=== PATIENT | male | born 1960 | race Hispanic/Latino ===

== ENCOUNTER 2017-06-13 15:02 | Observation (INO) | payer MEDICARE ==
[~2017-06-13] VITALS: Ht 182.9 cm; Wt 165.1 kg
[~2017-06-13 15:02] MED LIST: AMLO5TAB2 PO; CARV12.511 PO
[2017-06-13 15:53] LABS: EOSINOPHILS % (AUTO) 2.2 % (0.0-8.0); HEMATOCRIT 39.4 % (42-54); LYMPHOCYTES % (AUTO) 18.6 % (21.0-51.0); MEAN CORPUSCULAR HEMOGLOBIN 31.6 pg (27.0-33.0); MEAN CORPUSCULAR HGB CONC 34.4 g/dL (32.0-36.0); MEAN CORPUSCULAR VOLUME 91.9 fL (79-99); MONOCYTES % (AUTO) 7.4 % (3.0-13.0); NEUTROPHILS % (AUTO) 70.8 % (40.0-77.0); PLATELET COUNT (AUTO) 80 K/uL (130-400); RED BLOOD CELL COUNT(AUTO) 4.29 MIL/uL (4.50-6.20); RED CELL DISTRIBUTION WIDTH 14.9 % (11.0-15.5); WHITE BLOOD COUNT (AUTO) 3.6 K/uL (4.8-10.8)
[2017-06-13 15:57] LABS: CREATININE 0.8 mg/dL (0.5-1.5); POTASSIUM 4.4 mmol/L (3.5-5.1)
[2017-06-13 16:01] LABS: INR 1.21 (0.85-1.15); PROTHROMBIN TIME 12.7 SEC (9.6-11.6)
[2017-06-13 16:02] LABS: ALBUMIN 2.8 g/dL (3.5-5.0); BILIRUBIN,TOTAL 1.5 mg/dL (0.2-1.0); TOTAL PROTEIN, SERUM 7.7 g/dL (6.0-8.3)
[2017-06-13] MEDS ORDERED: ENOXAPARIN SODIUM 60 MG/0.6 ML SQ ONE (16:41)
[2017-06-13] MEDS ORDERED: ENOXAPARIN SODIUM 100 MG/1 ML SQ ONE (16:41)
[2017-06-13 17:10] VITALS: BP 164/95
[2017-06-13] MEDS ORDERED: POTASSIUM CHLORIDE 20 MEQ ERTAB PO PRN (18:00)
[2017-06-13] MEDS ORDERED: ACETAMINOPHEN-CODEINE 300/30MG TAB PO PRN ×2 (18:00)
[2017-06-13] MEDS ORDERED: POTASSIUM CHLORIDE 20MEQ/100ML 100 ML IV PRN (18:00)
[2017-06-13] MEDS ORDERED: LIDOCAINE HCL-MPF 1% 2ML VIAL IJ PRN (18:00)
[2017-06-13] MEDS ORDERED: ACETAMINOPHEN 325 MG TAB PO PRN ×2 (18:00)
[2017-06-13] MEDS ORDERED: MORPHINE SULFATE 4 MG/1ML SYG IVP PRN (18:00)
[2017-06-13] MEDS ORDERED: POTASSIUM CHLORIDE 10% ELIXIR 20 MEQ/15 ML UDCUP PO PRN (18:00)
[2017-06-13] MEDS ORDERED: MORPHINE SULFATE 2 MG/ML 1ML SYG IVP PRN (18:00)
[2017-06-13] MEDS ORDERED: ONDANSETRON HCL 4 MG/2 ML VIAL IVP PRN (18:00)
[2017-06-13 19:44] VITALS: BP 161/90
[2017-06-13] MEDS: RIVAROXABAN 15 MG TABLET PO SCH (20:19)
[2017-06-14] VITALS (7 sets, daily range): BP systolic 146–153; BP diastolic 75–87
[2017-06-14] MEDS ORDERED: CEFTRIAXONE 1GM/D5W 50ML 50 ML IV SCH (00:30)
[2017-06-14] MEDS ORDERED: GLUCAGON 1MG KIT 1 MG ML IM PRN (00:30)
[2017-06-14] MEDS ORDERED: DEXTROSE 50%-WATER 50 ML DISP.SYRIN IV PRN (00:30)
[2017-06-14] MEDS: CEFTRIAXONE SODIUM 1 GM IVP SCH (01:27)
[2017-06-14 04:35] LABS: MEAN CORPUSCULAR HEMOGLOBIN 31.8 pg (27.0-33.0); MEAN CORPUSCULAR HGB CONC 34.8 g/dL (32.0-36.0); MEAN CORPUSCULAR VOLUME 91.2 fL (79-99); PLATELET COUNT (AUTO) 65 K/uL (130-400); RED BLOOD CELL COUNT(AUTO) 3.95 MIL/uL (4.50-6.20); RED CELL DISTRIBUTION WIDTH 14.5 % (11.0-15.5); WHITE BLOOD COUNT (AUTO) 3.1 K/uL (4.8-10.8)
[2017-06-14 04:52] LABS: CREATININE 0.6 mg/dL (0.5-1.5); POTASSIUM 3.6 mmol/L (3.5-5.1)
[2017-06-14] MEDS: INSULIN HUMULIN R 100 UNIT/ML 3ML SQ SCH ×4 (06:50→21:29)
[2017-06-14] MEDS ORDERED: MAG HYDROX/AL HYDROX/SIMETH ES 30 ML SUSP UDCUP PO PRN (08:30)
[2017-06-14] MEDS ORDERED: GUAIFENESIN-DM 200/20 MG 10 ML PO PRN (08:30)
[2017-06-14] MEDS ORDERED: HYDRALAZINE HCL 20 MG/ML VIAL IV PRN (08:30)
[2017-06-14] MEDS ORDERED: NITROGLYCERIN 0.4 MG SL TAB SL PRN (08:30)
[2017-06-14] MEDS ORDERED: LACTULOSE 20 GM/30 ML UDCUP PO PRN (08:30)
[2017-06-14] MEDS: RIVAROXABAN 15 MG TABLET PO SCH ×2 (09:41→21:16)
[2017-06-14] MEDS: FAMOTIDINE/PF 20 MG/2 ML VIAL IV SCH ×2 (09:41→21:16)
[2017-06-14] MEDS ORDERED: TRAZ150T79 PO (10:00)
[2017-06-14] MEDS ORDERED: ARIP15TA2 PO (10:00)
[2017-06-14] MEDS ORDERED: ASPI-1026 PO (10:00)
[2017-06-14] MEDS ORDERED: HYDR-4154 PO (10:00)
[2017-06-14] MEDS ORDERED: HYDR12.54 PO (10:00)
[2017-06-14] MEDS ORDERED: VILA40TA PO (10:00)
[2017-06-14] MEDS ORDERED: METF500T6 PO (10:00)
[2017-06-14] MEDS ORDERED: LOVA10TA2 PO (10:00)
[2017-06-14] MEDS ORDERED: ALPR-411 PO (10:00)
[2017-06-15] MEDS: CEFTRIAXONE SODIUM 1 GM IVP SCH (01:27)
[2017-06-15 04:21] VITALS: BP 146/93
[2017-06-15 05:24] LABS: HEMATOCRIT 37.8 % (42-54); MEAN CORPUSCULAR HEMOGLOBIN 31.6 pg (27.0-33.0); MEAN CORPUSCULAR HGB CONC 34.4 g/dL (32.0-36.0); NUCLEATED RED BLOOD CELLS 0.1 % (0.0-0.19); PLATELET COUNT (AUTO) 81 K/uL (130-400); RED BLOOD CELL COUNT(AUTO) 4.11 MIL/uL (4.50-6.20); RED CELL DISTRIBUTION WIDTH 14.8 % (11.0-15.5); WHITE BLOOD COUNT (AUTO) 3.5 K/uL (4.8-10.8)
[2017-06-15 05:39] LABS: BAND NEUTROPHILS % (MANUAL) 4 % (0-2); LYMPHOCYTES % (MANUAL) 40 % (22-44); MAN.DIFF COMMENT-IMPRESSION MANUAL DIFFERENTIAL; MONOCYTES % (MANUAL) 12 % (2-9); PLATELET MORPHOLOGY COMMENT DECREASED; SEGMENTED NEUTROPHILS % 44 % (40-70)
[2017-06-15 05:42] LABS: CREATININE 0.6 mg/dL (0.5-1.5); POTASSIUM 3.5 mmol/L (3.5-5.1)
[2017-06-15] MEDS: INSULIN HUMULIN R 100 UNIT/ML 3ML SQ SCH ×2 (06:59→12:31)
[2017-06-15 08:00] VITALS: BP 138/70
[2017-06-15] MEDS: FAMOTIDINE/PF 20 MG/2 ML VIAL IV SCH (08:50)
[2017-06-15] MEDS: RIVAROXABAN 15 MG TABLET PO SCH (08:50)
[2017-06-15] MEDS ORDERED: VILAZODONE HYDROCHLORIDE 40 MG PO SCH (09:00)
[2017-06-15] MEDS ORDERED: HYDRALAZINE HCL 25 MG TABLET PO SCH (09:00)
[2017-06-15] MEDS ORDERED: ALPRAZOLAM 1 MG TAB PO SCH (09:00)
[2017-06-15] MEDS ORDERED: ARIPIPRAZOLE 5 MG TABLET PO SCH (09:00)
[2017-06-15] MEDS ORDERED: CARVEDILOL 12.5 MG TABLET PO SCH (09:00)
[2017-06-15 11:00] VITALS: BP 146/79
[2017-06-15 12:28] VITALS: BP 146/79
[2017-06-15] MEDS ORDERED: TRAZODONE HCL 100 MG TABLET PO SCH (21:00)
== END 2017-06-15 15:00 | disposition home or self-care (01) ==
LOC: EDH 15:02 → EDHIP 15:50 → 3BH 16:50
PROVIDERS: ADMIT Internal Medicine; ATTEND Internal Medicine
DX: I82.401 Acute embolism and thrombosis of unspecified deep veins of right lower extremity (principal); E11.65 Type 2 diabetes mellitus with hyperglycemia; F32.9 Major depressive disorder, single episode, unspecified; E78.5 Hyperlipidemia, unspecified; I10 Essential (primary) hypertension; K74.60 Unspecified cirrhosis of liver; L03.115 Cellulitis of right lower limb; E66.9 Obesity, unspecified
CPT/HCPCS: 36415 ×3; 80048 ×2; 80053; 82948 ×7; 85025 ×2; 85027; 85610; 85730; 96372 ×3; 96374; 96375; 96376 ×3; 99291; A4218 ×2; G0378 ×47; J0696 ×3; J1650 ×2; J1815 ×5; J3490 ×3

== ENCOUNTER 2017-09-02 17:28 | Inpatient (IN) | payer OTHER, MEDICARE ==
[~2017-09-02] VITALS: Ht 180.3 cm; Wt 154.5 kg
[~2017-09-02 17:28] MED LIST changes: +ALPR-411 PO; -AMLO5TAB2 PO; +ARIP15TA2 PO; +ASPI-1026 PO; +HYDR-4154 PO; +HYDR12.54 PO; +LOVA10TA2 PO; +METF500T6 PO; +TRAZ150T79 PO; +VILA40TA PO
[2017-09-02] MEDS ORDERED: ONDANSETRON HCL MDV 20ML 2 MG/ML VIAL ONE (18:06)
[2017-09-02] MEDS ORDERED: SODIUM CHLORIDE 0.9% 1000ML 1,000 ML IV ONE (18:06)
[2017-09-02 18:10] LABS: EOSINOPHILS % (AUTO) 2.4 % (0.0-8.0); HEMATOCRIT 38.2 % (42-54); LYMPHOCYTES % (AUTO) 20.4 % (21.0-51.0); MEAN CORPUSCULAR HEMOGLOBIN 30.9 pg (27.0-33.0); MEAN CORPUSCULAR HGB CONC 34.8 g/dL (32.0-36.0); MEAN CORPUSCULAR VOLUME 88.9 fL (79-99); MONOCYTES % (AUTO) 6.1 % (3.0-13.0); NEUTROPHILS % (AUTO) 70.1 % (40.0-77.0); PLATELET COUNT (AUTO) 68 K/uL (130-400); RED CELL DISTRIBUTION WIDTH 16.5 % (11.0-15.5); WHITE BLOOD COUNT (AUTO) 3.4 K/uL (4.8-10.8)
[2017-09-02 18:17] LABS: AMPHET/METH SCREEN,URINE NEGATIVE (NEGATIVE); BARBITURATE SCREEN, URINE NEGATIVE (NEGATIVE); BENZODIAZEPINES SCREEN,URINE POSITIVE (NEGATIVE); CANNABINOID SCREEN,URINE POSITIVE (NEGATIVE); COCAINE SCREEN,URINE NEGATIVE (NEGATIVE); OPIATE SCREEN,URINE NEGATIVE (NEGATIVE); PHENCYCLIDINE SCREEN,URINE NEGATIVE (NEGATIVE)
[2017-09-02 18:20] LABS: INR 1.24 (0.85-1.15)
[2017-09-02 18:23] LABS: CREATININE 0.6 mg/dL (0.5-1.5); POTASSIUM 3.8 mmol/L (3.5-5.1)
[2017-09-02 18:35] LABS: ALBUMIN 2.9 g/dL (3.5-5.0); BILIRUBIN,TOTAL 1.9 mg/dL (0.2-1.0); CREATINE KINASE MB 1.7 ng/mL (0.5-3.6); TOTAL PROTEIN, SERUM 7.8 g/dL (6.0-8.3)
[2017-09-02] MEDS ORDERED: ALBUMIN (HUMAN) 25% 100 ML IV ONE (18:53)
[2017-09-02] MEDS ORDERED: CEFTRIAXONE SODIUM 2 GM VIAL ONE (18:53)
[2017-09-02] MEDS ORDERED: ACETAMINOPHEN 325 MG TAB PO PRN ×2 (20:00)
[2017-09-02] MEDS ORDERED: ONDANSETRON HCL MDV 20ML 2 MG/ML VIAL IVP PRN ×2 (20:00→23:45)
[2017-09-02] MEDS ORDERED: LACTULOSE 20 GM/30 ML UDCUP PO PRN (20:00)
[2017-09-02] MEDS ORDERED: SODIUM CHLORIDE 0.9% 100 ML IV ONE (23:47)
[2017-09-03] VITALS (7 sets, daily range): BP systolic 133–152; BP diastolic 65–87
[2017-09-03] MEDS ORDERED: HYDROCODONE PO (03:03)
[2017-09-03] MEDS ORDERED: FOLI1TAB15 PO (03:03)
[2017-09-03] MEDS ORDERED: APIX5TAB PO (03:03)
[2017-09-03 06:21] LABS: HEMATOCRIT 37.8 % (42-54); MEAN CORPUSCULAR HGB CONC 34.8 g/dL (32.0-36.0); MEAN CORPUSCULAR VOLUME 89.1 fL (79-99); PLATELET COUNT (AUTO) 68 K/uL (130-400); RED BLOOD CELL COUNT(AUTO) 4.24 MIL/uL (4.50-6.20); RED CELL DISTRIBUTION WIDTH 16.9 % (11.0-15.5); WHITE BLOOD COUNT (AUTO) 3.6 K/uL (4.8-10.8)
[2017-09-03 06:28] LABS: CREATININE 0.6 mg/dL (0.5-1.5); POTASSIUM 3.8 mmol/L (3.5-5.1)
[2017-09-03] MEDS ORDERED: PANTOPRAZOLE SODIUM 40 MG TABLET.DR PO SCH (09:00)
[2017-09-03] MEDS: PANTOPRAZOLE SODIUM 80 MG in SODIUM CHLORIDE 0.9% 100 ML IV SCH (09:04)
[2017-09-03] MEDS ORDERED: DEXTROSE 50%-WATER 50 ML DISP.SYRIN IV PRN (09:30)
[2017-09-03] MEDS ORDERED: GLUCAGON 1MG KIT 1 MG ML IM PRN (09:30)
[2017-09-03] MEDS: INSULIN HUMULIN R 100 UNIT/ML 3ML SQ SCH ×3 (11:38→20:57)
[2017-09-03] MEDS: ALPRAZOLAM 1 MG TAB PO SCH ×2 (14:00→21:10)
[2017-09-03] MEDS ORDERED: OCTREOTIDE ACETATE 100 MCG/ML AMP IV SCH (16:45)
[2017-09-03] MEDS: OCTREOTIDE ACETATE 1,000 MCG in SODIUM CHLORIDE 0.9% 95 ML IV SCH (17:44)
[2017-09-03] MEDS: TRAZODONE HCL 100 MG TABLET PO SCH (21:09)
[2017-09-03] MEDS: HYDRALAZINE HCL 25 MG TABLET PO SCH (21:09)
[2017-09-03] MEDS: CARVEDILOL 12.5 MG TABLET PO SCH (21:10)
[2017-09-04] VITALS (22 sets, daily range): BP systolic 121–147; BP diastolic 54–102
[2017-09-04 05:49] LABS: HEMATOCRIT 37.3 % (42-54); MEAN CORPUSCULAR HEMOGLOBIN 30.9 pg (27.0-33.0); MEAN CORPUSCULAR HGB CONC 34.4 g/dL (32.0-36.0); MEAN CORPUSCULAR VOLUME 89.7 fL (79-99); PLATELET COUNT (AUTO) 65 K/uL (130-400); RED BLOOD CELL COUNT(AUTO) 4.15 MIL/uL (4.50-6.20); RED CELL DISTRIBUTION WIDTH 16.8 % (11.0-15.5); WHITE BLOOD COUNT (AUTO) 3.4 K/uL (4.8-10.8)
[2017-09-04] MEDS: INSULIN HUMULIN R 100 UNIT/ML 3ML SQ SCH ×4 (06:05→21:01)
[2017-09-04] MEDS: PANTOPRAZOLE SODIUM 80 MG in SODIUM CHLORIDE 0.9% 100 ML IV SCH (08:29)
[2017-09-04] MEDS: VIIBRYD 40 MG PO SCH (09:00)
[2017-09-04] MEDS: HYDRALAZINE HCL 25 MG TABLET PO SCH ×2 (09:00→21:07)
[2017-09-04] MEDS: HYDROCHLOROTHIAZIDE 25 MG TABLET PO SCH (09:00)
[2017-09-04] MEDS: ALPRAZOLAM 1 MG TAB PO SCH ×3 (09:00→21:06)
[2017-09-04] MEDS: FOLIC ACID 1 MG TABLET PO SCH (09:00)
[2017-09-04] MEDS: CARVEDILOL 12.5 MG TABLET PO SCH ×2 (09:00→21:06)
[2017-09-04] MEDS: ARIPIPRAZOLE 5 MG TABLET PO SCH (09:00)
[2017-09-04] MEDS: **HM** LOVASTATIN 10MG PO SCH (09:00)
[2017-09-04] MEDS ORDERED: MIDAZOLAM HCL 1 MG/ML 2ML VIAL ONE ×2 (12:02→12:03)
[2017-09-04] MEDS ORDERED: MEPERIDINE-PF 50 MG/ML SYG ONE (12:03)
[2017-09-04] MEDS: TRAZODONE HCL 100 MG TABLET PO SCH (21:06)
[2017-09-05 04:02] VITALS: BP 113/55
[2017-09-05 05:47] LABS: HEMATOCRIT 37.3 % (42-54); MEAN CORPUSCULAR HEMOGLOBIN 31.6 pg (27.0-33.0); MEAN CORPUSCULAR VOLUME 90.3 fL (79-99); PLATELET COUNT (AUTO) 76 K/uL (130-400); RED BLOOD CELL COUNT(AUTO) 4.13 MIL/uL (4.50-6.20); RED CELL DISTRIBUTION WIDTH 16.6 % (11.0-15.5); WHITE BLOOD COUNT (AUTO) 3.9 K/uL (4.8-10.8)
[2017-09-05] MEDS: INSULIN HUMULIN R 100 UNIT/ML 3ML SQ SCH ×4 (06:07→22:19)
[2017-09-05 08:00] VITALS: BP 119/66
[2017-09-05] MEDS: FOLIC ACID 1 MG TABLET PO SCH (08:50)
[2017-09-05] MEDS: HYDROCHLOROTHIAZIDE 25 MG TABLET PO SCH (08:50)
[2017-09-05] MEDS: CARVEDILOL 12.5 MG TABLET PO SCH ×2 (08:51→20:45)
[2017-09-05] MEDS: ARIPIPRAZOLE 5 MG TABLET PO SCH (08:51)
[2017-09-05] MEDS: HYDRALAZINE HCL 25 MG TABLET PO SCH ×2 (08:51→20:44)
[2017-09-05] MEDS: ALPRAZOLAM 1 MG TAB PO SCH ×3 (08:51→20:44)
[2017-09-05] MEDS: **HM** LOVASTATIN 10MG PO SCH (08:57)
[2017-09-05] MEDS: VIIBRYD 40 MG PO SCH (08:57)
[2017-09-05] MEDS: OCTREOTIDE ACETATE 1,000 MCG in SODIUM CHLORIDE 0.9% 95 ML IV SCH (11:14)
[2017-09-05 12:00] VITALS: BP 123/76
[2017-09-05 16:00] VITALS: BP 148/78
[2017-09-05 19:00] VITALS: BP 141/81
[2017-09-05] MEDS: TRAZODONE HCL 100 MG TABLET PO SCH (20:44)
[2017-09-05 23:00] VITALS: BP 139/74
[2017-09-06 03:00] VITALS: BP 132/72
[2017-09-06 05:09] LABS: HEMATOCRIT 37.6 % (42-54); MEAN CORPUSCULAR HEMOGLOBIN 31.1 pg (27.0-33.0); MEAN CORPUSCULAR HGB CONC 34.6 g/dL (32.0-36.0); MEAN CORPUSCULAR VOLUME 89.9 fL (79-99); PLATELET COUNT (AUTO) 76 K/uL (130-400); RED BLOOD CELL COUNT(AUTO) 4.18 MIL/uL (4.50-6.20); RED CELL DISTRIBUTION WIDTH 16.5 % (11.0-15.5); WHITE BLOOD COUNT (AUTO) 3.9 K/uL (4.8-10.8)
[2017-09-06 05:11] LABS: CREATININE 0.6 mg/dL (0.5-1.5); POTASSIUM 3.5 mmol/L (3.5-5.1)
[2017-09-06] MEDS: INSULIN HUMULIN R 100 UNIT/ML 3ML SQ SCH ×2 (06:14→13:01)
[2017-09-06 07:00] VITALS: BP 127/72
[2017-09-06] MEDS: ARIPIPRAZOLE 5 MG TABLET PO SCH (08:57)
[2017-09-06] MEDS: HYDROCHLOROTHIAZIDE 25 MG TABLET PO SCH (08:57)
[2017-09-06] MEDS: FOLIC ACID 1 MG TABLET PO SCH (08:58)
[2017-09-06] MEDS: ALPRAZOLAM 1 MG TAB PO SCH ×2 (08:58→14:46)
[2017-09-06] MEDS: HYDRALAZINE HCL 25 MG TABLET PO SCH (08:58)
[2017-09-06] MEDS: CARVEDILOL 12.5 MG TABLET PO SCH (08:58)
[2017-09-06] MEDS ORDERED: PANTOPRAZOLE SODIUM 40 MG TABLET.DR PO SCH (09:00)
[2017-09-06] MEDS: **HM** LOVASTATIN 10MG PO SCH (09:00)
[2017-09-06] MEDS: VIIBRYD 40 MG PO SCH (09:00)
[2017-09-06] MEDS ORDERED: PANT40TA25 PO (09:19)
[2017-09-06 11:00] VITALS: BP 107/58
== END 2017-09-06 15:47 | disposition home or self-care (01) | DRG 432 ==
LOC: EDH 17:28 → EDHIP 18:25 → OBSVTOIN 18:25 → 3AH 09-03 01:26
PROVIDERS: ADMIT Family Medicine; ATTEND Family Medicine
PROC: 06L38CZ Occlusion of Esophageal Vein with Extraluminal Device, Via Natural or Artificial Opening Endoscopic (ICD-10-PCS; principal; 2017-09-04)
DX: K70.30 Alcoholic cirrhosis of liver without ascites (principal); I85.11 Secondary esophageal varices with bleeding; D69.6 Thrombocytopenia, unspecified; D68.4 Acquired coagulation factor deficiency; D62 Acute posthemorrhagic anemia; E66.01 Morbid (severe) obesity due to excess calories; K92.1 Melena; Z68.42 Body mass index [BMI] 45.0-49.9, adult; E11.9 Type 2 diabetes mellitus without complications; D73.1 Hypersplenism; I10 Essential (primary) hypertension; E78.5 Hyperlipidemia, unspecified; F10.10 Alcohol abuse, uncomplicated; F12.90 Cannabis use, unspecified, uncomplicated; F17.200 Nicotine dependence, unspecified, uncomplicated; F32.9 Major depressive disorder, single episode, unspecified; K27.9 Peptic ulcer, site unspecified, unspecified as acute or chronic, without hemorrhage or perforation; Z79.01 Long term (current) use of anticoagulants; Z82.49 Family history of ischemic heart disease and other diseases of the circulatory system; Z83.3 Family history of diabetes mellitus; Z86.718 Personal history of other venous thrombosis and embolism
CPT/HCPCS: 36415; 71045; 80048; 80053; 80305; 82550; 82553; 82948; 83874; 84484; 85025; 85027; 85610; 85730; 86677; 86850; 86900; 86901; 87040; 93005; 93970; 99152; C9113; G0480; J0696; J1815; J2175; J2250; J2354; J7030; P9046

== ENCOUNTER 2017-10-17 13:40 | Emergency (ER) | payer OTHER, MEDICARE ==
[~2017-10-17 13:40] MED LIST changes: -ASPI-1026 PO; +FOLI1TAB15 PO; +HYDROCODONE PO; +PANT40TA25 PO
[2017-10-17 14:01] LABS: BASOPHILS % (AUTO) 1.5 % (0.0-5.0); EOSINOPHILS % (AUTO) 0.8 % (0.0-8.0); HEMATOCRIT 37.7 % (42-54); MEAN CORPUSCULAR HGB CONC 34.9 g/dL (32.0-36.0); MEAN CORPUSCULAR VOLUME 88.8 fL (79-99); MONOCYTES % (AUTO) 5.5 % (3.0-13.0); NEUTROPHILS % (AUTO) 64.2 % (40.0-77.0); PLATELET COUNT (AUTO) 80 K/uL (130-400); RED BLOOD CELL COUNT(AUTO) 4.25 MIL/uL (4.50-6.20); RED CELL DISTRIBUTION WIDTH 15.5 % (11.0-15.5)
[2017-10-17] MEDS ORDERED: PANTOPRAZOLE 40 MG/VIAL ONE (14:29)
[2017-10-17] MEDS ORDERED: ONDANSETRON HCL 4 MG/2 ML VIAL ONE (14:34)
[2017-10-17 14:38] LABS: APPEARANCE,URINE Cloudy (CLEAR); BILIRUBIN,URINE Negative (NEGATIVE); COLOR,URINE Dark Yellow (YELLOW); GLUCOSE, URINE (UA) >=1000 mg/dL (NEGATIVE); KETONES,URINE >=80 mg/dL (NEGATIVE); LEUKOCYTE ESTERASE ,URINE Moderate (NEGATIVE); NITRATE,URINE Negative (NEGATIVE); OCCULT BLOOD,URINE Moderate (NEGATIVE); PH,URINE 7.5 (5.0-8.0); PROTEIN,URINE 300 (NEGATIVE)
[2017-10-17 14:46] LABS: AMPHET/METH SCREEN,URINE NEGATIVE (NEGATIVE); BARBITURATE SCREEN, URINE NEGATIVE (NEGATIVE); BENZODIAZEPINES SCREEN,URINE NEGATIVE (NEGATIVE); CANNABINOID SCREEN,URINE NEGATIVE (NEGATIVE); COCAINE SCREEN,URINE NEGATIVE (NEGATIVE); OPIATE SCREEN,URINE NEGATIVE (NEGATIVE); PHENCYCLIDINE SCREEN,URINE NEGATIVE (NEGATIVE)
[2017-10-17 14:50] LABS: BACTERIA,URINE Few /HPF (None Seen); RBC,URINE 26-50 /HPF (0-1); WBC,URINE 26-50 /HPF (0-1)
[2017-10-17 14:51] LABS: MUCUS,URINE Few LPF (None Seen); TRANSITIONAL EPI CELLS,URINE Few /HPF (None Seen)
[2017-10-17 14:54] LABS: CREATININE 0.6 mg/dL (0.5-1.5); POTASSIUM 3.4 mmol/L (3.5-5.1)
[2017-10-17 14:58] LABS: ALBUMIN 3.1 g/dL (3.5-5.0); BILIRUBIN,TOTAL 1.1 mg/dL (0.2-1.0)
== END 2017-10-17 17:33 | disposition home or self-care (01) ==
LOC: EDH 13:40
DX: K29.00 Acute gastritis without bleeding (principal); E11.9 Type 2 diabetes mellitus without complications; E78.5 Hyperlipidemia, unspecified; I10 Essential (primary) hypertension
CPT/HCPCS: 36415; 74176; 80053; 80305; 81001; 82550; 83690; 84484; 85025; 93005; 96374; 96375; 99285; C9113; J2405

== ENCOUNTER → 2017-10-27 | Outpatient (CLI) | payer OTHER, MEDICARE | END | disposition home or self-care (01) | LOC: OIH 08:53 | PROVIDERS: ATTEND Physical Medicine & Rehabilitation | DX: M47.892 Other spondylosis, cervical region (principal); M48.02 Spinal stenosis, cervical region | CPT/HCPCS: 72052 ==

== ENCOUNTER 2018-01-29 13:07 | Emergency (ER) | payer OTHER, MEDICARE ==
[~2018-01-29 13:07] MED LIST changes: +METF-444 PO; -METF500T6 PO
[2018-01-29 13:41] LABS: BASOPHILS % (AUTO) 1.2 % (0.0-5.0); EOSINOPHILS % (AUTO) 1.2 % (0.0-8.0); HEMATOCRIT 38.8 % (42-54); LYMPHOCYTES % (AUTO) 11.8 % (21.0-51.0); MEAN CORPUSCULAR HEMOGLOBIN 29.1 pg (27.0-33.0); MEAN CORPUSCULAR HGB CONC 32.9 g/dL (32.0-36.0); MEAN CORPUSCULAR VOLUME 88.2 fL (79-99); MONOCYTES % (AUTO) 5.4 % (3.0-13.0); NEUTROPHILS % (AUTO) 80.4 % (40.0-77.0); NUCLEATED RED BLOOD CELLS 0.1 % (0.0-0.19); PLATELET COUNT (AUTO) 40 K/uL (130-400); RED CELL DISTRIBUTION WIDTH 20.1 % (11.0-15.5); WHITE BLOOD COUNT (AUTO) 3.2 K/uL (4.8-10.8)
[2018-01-29 13:41] LABS: APPEARANCE,URINE Clear (CLEAR); BILIRUBIN,URINE Moderate (NEGATIVE); COLOR,URINE Dark Yellow (YELLOW); GLUCOSE, URINE (UA) Negative (NEGATIVE); KETONES,URINE Trace mg/dL (NEGATIVE); LEUKOCYTE ESTERASE ,URINE Trace (NEGATIVE); NITRATE,URINE Positive (NEGATIVE); OCCULT BLOOD,URINE Negative (NEGATIVE); PROTEIN,URINE POS 2+ (NEGATIVE)
[2018-01-29 13:49] LABS: CREATININE 0.7 mg/dL (0.5-1.5); POTASSIUM 3.8 mmol/L (3.5-5.1)
[2018-01-29 13:54] LABS: ALBUMIN 2.8 g/dL (3.5-5.0); TOTAL PROTEIN, SERUM 7.9 g/dL (6.0-8.3)
[2018-01-29 14:24] LABS: BACTERIA,URINE Rare /HPF (None Seen); RBC,URINE 0-1 /HPF (0-1)
[2018-01-29 14:25] LABS: SQUAMOUS EPITHELIAL CELL,UR 0-2 /HPF (0-2); WBC,URINE 0-1 /HPF (0-1)
[2018-01-29 14:43] LABS: PLATELET MORPHOLOGY COMMENT MARKED DECREASED
[2018-01-29] MEDS ORDERED: MAG HYDROX/AL HYDROX/SIMETH ES 30 ML SUSP UDCUP ONE (15:57)
[2018-01-29] MEDS ORDERED: LIDOCAINE HCL 2% VISCOUS 15 ML UDCUP ONE (15:57)
== END 2018-01-29 16:51 | disposition home or self-care (01) ==
LOC: EDH 13:07
DX: G89.29 Other chronic pain (principal); R10.9 Unspecified abdominal pain; K70.10 Alcoholic hepatitis without ascites; F10.20 Alcohol dependence, uncomplicated; K74.60 Unspecified cirrhosis of liver; F32.9 Major depressive disorder, single episode, unspecified; E11.9 Type 2 diabetes mellitus without complications; E78.5 Hyperlipidemia, unspecified; I10 Essential (primary) hypertension; Z98.890 Other specified postprocedural states; Z87.891 Personal history of nicotine dependence
CPT/HCPCS: 36415; 74176; 80053; 81001; 83690; 85025

== ENCOUNTER → 2018-02-06 | Outpatient (CLI) | payer OTHER, MEDICARE | END | disposition home or self-care (01) | LOC: RAH 10:00 | PROVIDERS: ATTEND Internal Medicine | DX: R10.10 Upper abdominal pain, unspecified (principal); R10.12 Left upper quadrant pain; R14.0 Abdominal distension (gaseous); R11.2 Nausea with vomiting, unspecified | CPT/HCPCS: 78264; A9541 ==

== ENCOUNTER → 2019-03-26 | Outpatient (CLI) | payer OTHER, MEDICARE ==
[~2019-03-26] VITALS: Ht 182.9 cm; Wt 145.6 kg
[~2019-03-26] MED LIST changes: +REGADENOSON 0.4 MG/5 ML PF SYG IVP SCH
== END | disposition home or self-care (01) ==
LOC: SHCH 07:48
PROVIDERS: ATTEND Internal Medicine Cardiovascular Disease
DX: R06.00 Dyspnea, unspecified (principal)
CPT/HCPCS: 78452; 93017; 96374; A9500 ×2; J2785

== ENCOUNTER 2019-05-18 14:22 | Emergency (ER) | payer OTHER, MEDICARE ==
[~2019-05-18 14:22] MED LIST changes: -REGADENOSON 0.4 MG/5 ML PF SYG IVP SCH
[2019-05-18] MEDS ORDERED: DIAZEPAM 5 MG TABLET ONE (16:06)
[2019-05-18] MEDS ORDERED: LIDOCAINE 5% TOPICAL PATCH TP ONE (16:06)
[2019-05-18] MEDS ORDERED: KETOROLAC TROMETHAMINE 60 MG/2 ML VIAL ONE (16:06)
== END 2019-05-18 17:04 | disposition home or self-care (01) ==
LOC: EDH 14:22
DX: G89.29 Other chronic pain (principal); M54.2 Cervicalgia; M54.5 Low back pain; E11.9 Type 2 diabetes mellitus without complications; I10 Essential (primary) hypertension; E78.5 Hyperlipidemia, unspecified; F32.9 Major depressive disorder, single episode, unspecified; Z87.891 Personal history of nicotine dependence
CPT/HCPCS: 96372; 99283; J1885

== ENCOUNTER 2019-08-07 10:49 | Emergency (ER) | payer OTHER, MEDICARE ==
[~2019-08-07 10:49] MED LIST changes: +ACET1TAB25 PO; +FLUT16H NASAL; -FOLI1TAB15 PO; +FURO40TA5 PO; -HYDR-4154 PO; -HYDROCODONE PO; +INSU100V SQ; +INSU300I SQ; -PANT40TA25 PO
[2019-08-07] MEDS ORDERED: MORPHINE SULFATE 4 MG/1ML SYG ONE (11:09)
[2019-08-07] MEDS ORDERED: ONDANSETRON HCL 4 MG/2 ML VIAL ONE (11:09)
[2019-08-07] MEDS ORDERED: SODIUM CHLORIDE 0.9% 1000ML 1,000 ML IV ONE (11:10)
[2019-08-07 11:26] LABS: BASOPHILS % (AUTO) 0.8 % (0.0-5.0); EOSINOPHILS % (AUTO) 0.5 % (0.0-8.0); HEMATOCRIT 34.6 % (42-54); MEAN CORPUSCULAR HEMOGLOBIN 27.1 pg (27.0-33.0); MEAN CORPUSCULAR HGB CONC 32.4 g/dL (32.0-36.0); MEAN CORPUSCULAR VOLUME 83.6 fL (79-99); NEUTROPHILS % (AUTO) 65.2 % (40.0-77.0); PLATELET COUNT (AUTO) 69 K/uL (130-400); RED BLOOD CELL COUNT(AUTO) 4.14 MIL/uL (4.50-6.20); RED CELL DISTRIBUTION WIDTH 16.5 % (11.0-15.5)
[2019-08-07 11:29] LABS: APPEARANCE,URINE Cloudy (CLEAR); BILIRUBIN,URINE Small (NEGATIVE); COLOR,URINE Dark Yellow (YELLOW); GLUCOSE, URINE (UA) TRACE mg/dL (NEGATIVE); KETONES,URINE Trace mg/dL (NEGATIVE); LEUKOCYTE ESTERASE ,URINE Small (NEGATIVE); NITRATE,URINE Negative (NEGATIVE); OCCULT BLOOD,URINE Negative (NEGATIVE); PH,URINE 5.5 (5.0-8.0); PROTEIN,URINE 300 mg/dL (NEGATIVE)
[2019-08-07 11:32] LABS: CREATININE 0.9 mg/dL (0.5-1.5)
[2019-08-07 11:36] LABS: ALBUMIN 3.1 g/dL (3.5-5.0); BILIRUBIN,DIRECT 0.4 mg/dL (0.0-0.3); BILIRUBIN,TOTAL 1.5 mg/dL (0.2-1.0); TOTAL PROTEIN, SERUM 7.9 g/dL (6.0-8.3)
[2019-08-07 11:36] LABS: BACTERIA,URINE Few /HPF (None Seen); MUCUS,URINE Rare LPF (None Seen); RBC,URINE 0-1 /HPF (0-1); SQUAMOUS EPITHELIAL CELL,UR Moderate /HPF (0-2)
[2019-08-07] MEDS ORDERED: MAGNESIUM HYDROXIDE 30 ML/UDCUP ONE (11:42)
[2019-08-07] MEDS ORDERED: LIDOCAINE HCL 2% VISCOUS 15 ML UDCUP ONE (11:42)
[2019-08-07] MEDS ORDERED: DICYCLOMINE HCL 10 MG/ML 2ML AMP IM ONE (14:04)
== END 2019-08-07 14:32 | disposition home or self-care (01) ==
LOC: EDH 10:49
DX: K52.9 Noninfective gastroenteritis and colitis, unspecified (principal); E11.9 Type 2 diabetes mellitus without complications; E78.5 Hyperlipidemia, unspecified; I10 Essential (primary) hypertension; F32.9 Major depressive disorder, single episode, unspecified; Z87.891 Personal history of nicotine dependence
CPT/HCPCS: 36415; 74176; 80048; 80076; 81001; 82550; 83690; 84484; 85025; 93005; 96361; 96372; 96374; 96375; 99285; J0500; J2270; J2405; J7030

== ENCOUNTER 2019-08-08 04:21 | Emergency (ER) | payer OTHER, MEDICARE ==
[2019-08-08] MEDS ORDERED: SODIUM CHLORIDE 0.9% 1000ML 1,000 ML IV ONE ×2 (05:03→06:53)
[2019-08-08] MEDS ORDERED: MAG HYDROX/AL HYDROX/SIMETH ES 30 ML SUSP UDCUP ONE ×2 (05:05→07:00)
[2019-08-08] MEDS ORDERED: ONDANSETRON HCL 4 MG/2 ML VIAL ONE (05:05)
[2019-08-08] MEDS ORDERED: LIDOCAINE HCL 2% VISCOUS 15 ML UDCUP ONE ×2 (05:05→07:00)
[2019-08-08] MEDS ORDERED: FAMOTIDINE/PF 20 MG/2 ML VIAL IV ONE (05:06)
[2019-08-08 05:38] LABS: BASOPHILS % (AUTO) 0.9 % (0.0-5.0); EOSINOPHILS % (AUTO) 1.4 % (0.0-8.0); HEMATOCRIT 32.3 % (42-54); LYMPHOCYTES % (AUTO) 30.6 % (21.0-51.0); MEAN CORPUSCULAR HEMOGLOBIN 26.6 pg (27.0-33.0); MEAN CORPUSCULAR HGB CONC 31.9 g/dL (32.0-36.0); MEAN CORPUSCULAR VOLUME 83.5 fL (79-99); MONOCYTES % (AUTO) 7.7 % (3.0-13.0); NEUTROPHILS % (AUTO) 58.9 % (40.0-77.0); PLATELET COUNT (AUTO) 45 K/uL (130-400); RED BLOOD CELL COUNT(AUTO) 3.87 MIL/uL (4.50-6.20); RED CELL DISTRIBUTION WIDTH 16.3 % (11.0-15.5); WHITE BLOOD COUNT (AUTO) 2.2 K/uL (4.8-10.8)
[2019-08-08 05:42] LABS: CREATININE 0.9 mg/dL (0.5-1.5); POTASSIUM 4.1 mmol/L (3.5-5.1)
[2019-08-08 05:45] LABS: INR 1.36 (0.85-1.15); PARTIAL THROMBOPLASTIN TIME 29.2 SEC (26.3-35.5); PROTHROMBIN TIME 14.5 SEC (9.6-11.6)
[2019-08-08 05:49] LABS: ALBUMIN 2.9 g/dL (3.5-5.0); BILIRUBIN,TOTAL 2.2 mg/dL (0.2-1.0); MAGNESIUM 1.3 mg/dL (1.80-2.40); TOTAL PROTEIN, SERUM 7.6 g/dL (6.0-8.3)
[2019-08-08 05:57] LABS: BAND NEUTROPHILS % (MANUAL) 8 % (0-2); LYMPHOCYTES % (MANUAL) 24 % (22-44); MAN.DIFF COMMENT-IMPRESSION MANUAL DIFFERENTIAL; MONOCYTES % (MANUAL) 8 % (2-9); SEGMENTED NEUTROPHILS % 60 % (40-70)
[2019-08-08 05:58] LABS: PLATELET MORPHOLOGY COMMENT DECREASED
[2019-08-08] MEDS ORDERED: MAGNESIUM OXIDE 400 MG TABLET PO ONE (06:08)
[2019-08-08] MEDS ORDERED: METOCLOPRAMIDE 10 MG/2 ML VIAL ONE (06:53)
[2019-08-08] MEDS ORDERED: DICYCLOMINE HCL 20 MG TAB ONE (07:02)
[2019-08-08 07:15] LABS: APPEARANCE,URINE CLOUDY (CLEAR); BILIRUBIN,URINE SMALL (NEGATIVE); COLOR,URINE YELLOW (YELLOW); GLUCOSE, URINE (UA) NEGATIVE (NEGATIVE); KETONES,URINE 15 mg/dL (NEGATIVE); LEUKOCYTE ESTERASE ,URINE TRACE (NEGATIVE); NITRATE,URINE NEGATIVE (NEGATIVE); OCCULT BLOOD,URINE TRACE-INTACT (NEGATIVE); PROTEIN,URINE >=300 mg/dL (NEGATIVE)
[2019-08-08 07:35] LABS: BACTERIA,URINE Few /HPF (None Seen)
[2019-08-08 07:36] LABS: MUCUS,URINE Few LPF (None Seen); SQUAMOUS EPITHELIAL CELL,UR Many /HPF (0-2); WBC,URINE 26-50 /HPF (0-1)
== END 2019-08-08 08:14 | disposition home or self-care (01) ==
LOC: EDH 04:21
DX: K29.70 Gastritis, unspecified, without bleeding (principal); Z72.89 Other problems related to lifestyle; E11.9 Type 2 diabetes mellitus without complications; I10 Essential (primary) hypertension; E78.5 Hyperlipidemia, unspecified; Z90.49 Acquired absence of other specified parts of digestive tract; Z87.891 Personal history of nicotine dependence
CPT/HCPCS: 36415; 71045; 80053; 83690; 83735; 84484 ×2; 85025; 85610; 85730; 87088; 93005; 96361; 96374; 96375; 99285; J2405; J2765; J3490; J7030 ×2

== ENCOUNTER 2019-09-02 16:11 | Inpatient (IN) | payer OTHER, MEDICARE ==
[~2019-09-02] VITALS: Ht 182.9 cm; Wt 155.5 kg
[2019-09-02 16:33] LABS: BASOPHILS % (AUTO) 0.8 % (0.0-5.0); HEMATOCRIT 26.3 % (42-54); LYMPHOCYTES % (AUTO) 18.2 % (21.0-51.0); MEAN CORPUSCULAR HEMOGLOBIN 27.9 pg (27.0-33.0); MEAN CORPUSCULAR HGB CONC 32.7 g/dL (32.0-36.0); MEAN CORPUSCULAR VOLUME 85.4 fL (79-99); MONOCYTES % (AUTO) 5.6 % (3.0-13.0); NEUTROPHILS % (AUTO) 73.1 % (40.0-77.0); PLATELET COUNT (AUTO) 42 K/uL (130-400); RED BLOOD CELL COUNT(AUTO) 3.08 MIL/uL (4.50-6.20); RED CELL DISTRIBUTION WIDTH 18.6 % (11.0-15.5); WHITE BLOOD COUNT (AUTO) 3.6 K/uL (4.8-10.8)
[2019-09-02 16:50] LABS: INR 1.38 (0.85-1.15); PARTIAL THROMBOPLASTIN TIME 31.5 SEC (26.3-35.5); PROTHROMBIN TIME 14.7 SEC (9.6-11.6)
[2019-09-02 16:51] LABS: POTASSIUM 3.2 mmol/L (3.5-5.1)
[2019-09-02] MEDS ORDERED: FUROSEMIDE 10 MG/ML 4ML VIAL ONE (16:51)
[2019-09-02 16:56] LABS: BILIRUBIN,TOTAL 1.4 mg/dL (0.2-1.0); TOTAL PROTEIN, SERUM 7.2 g/dL (6.0-8.3)
[2019-09-02 16:58] LABS: B-TYPE NATRIURETIC PEPTIDE 438 pg/mL (0-100)
[2019-09-02] MEDS ORDERED: POTASSIUM BICARB/CIT AC 25 MEQ TABLET.EFF ONE (18:00)
[2019-09-02] MEDS ORDERED: GUAIFENESIN-DM 200/20 MG 10 ML PO PRN (19:15)
[2019-09-02] MEDS ORDERED: ONDANSETRON HCL 4 MG/2 ML VIAL IV PRN (19:15)
[2019-09-02] MEDS ORDERED: ACETAMINOPHEN 325 MG TAB PO PRN (19:15)
[2019-09-02] MEDS ORDERED: POTASSIUM CHLORIDE 10% ELIXIR 20 MEQ/15 ML UDCUP PO PRN (19:45)
[2019-09-02] MEDS ORDERED: GLUCAGON 1MG KIT 1 MG ML IM PRN (19:45)
[2019-09-02] MEDS ORDERED: LIDOCAINE HCL-MPF 1% 2ML VIAL IV PRN (19:45)
[2019-09-02] MEDS ORDERED: FUROSEMIDE 10 MG/ML 2ML VIAL IV SCH (19:45)
[2019-09-02] MEDS ORDERED: DEXTROSE 50%-WATER 50 ML DISP.SYRIN IV PRN (19:45)
[2019-09-02] MEDS ORDERED: FAMOTIDINE 20MG TAB 20 MG TAB ONE (20:14)
[2019-09-02] MEDS: INSULIN HUMULIN R 100 UNIT/ML 3ML SQ SCH (21:00)
[2019-09-02 21:38] LABS: ALBUMIN 3.1 g/dL (3.5-5.0); BILIRUBIN,DIRECT 0.5 mg/dL (0.0-0.3); BILIRUBIN,TOTAL 1.4 mg/dL (0.2-1.0); TOTAL PROTEIN, SERUM 7.4 g/dL (6.0-8.3)
[2019-09-02 21:40] VITALS: BP 127/66
--- NOTE | 2019-09-02 21:40 | NUR ---
ADMIT PATIENT RECEIVED TO ROOM 321 PATIENT AAOX3 RESTING IN BED. PATIENT DENIES ANY SOB,C/P, OR NAUSEA AT THIS TIME BUT IS REFUSING TO WERE TELEMONITORING. PATIENT WAS ADVISED OF RISK AND BENEFITS BUT STILL REFUSED PATIENT DID SIGN REFUSAL FORM.
[2019-09-02 21:43] LABS: APPEARANCE,URINE Clear (CLEAR); BILIRUBIN,URINE Negative (NEGATIVE); COLOR,URINE Yellow (YELLOW); GLUCOSE, URINE (UA) Negative (NEGATIVE); KETONES,URINE Negative (NEGATIVE); LEUKOCYTE ESTERASE ,URINE Negative (NEGATIVE); NITRATE,URINE Negative (NEGATIVE); OCCULT BLOOD,URINE Negative (NEGATIVE); PH,URINE 5.5 (5.0-8.0); PROTEIN,URINE Negative (NEGATIVE)
[2019-09-03 03:55] VITALS: BP 113/68
[2019-09-03 05:23] LABS: BASOPHILS % (AUTO) 0.7 % (0.0-5.0); EOSINOPHILS % (AUTO) 3.3 % (0.0-8.0); LYMPHOCYTES % (AUTO) 27.6 % (21.0-51.0); MEAN CORPUSCULAR HEMOGLOBIN 27.9 pg (27.0-33.0); MEAN CORPUSCULAR HGB CONC 31.9 g/dL (32.0-36.0); MEAN CORPUSCULAR VOLUME 87.2 fL (79-99); MONOCYTES % (AUTO) 6.6 % (3.0-13.0); NEUTROPHILS % (AUTO) 61.8 % (40.0-77.0); PLATELET COUNT (AUTO) 37 K/uL (130-400); RED BLOOD CELL COUNT(AUTO) 2.98 MIL/uL (4.50-6.20); RED CELL DISTRIBUTION WIDTH 18.8 % (11.0-15.5); WHITE BLOOD COUNT (AUTO) 2.7 K/uL (4.8-10.8)
[2019-09-03 05:39] LABS: ALBUMIN 2.9 g/dL (3.5-5.0); BILIRUBIN,TOTAL 1.6 mg/dL (0.2-1.0); HEMOGLOBIN A1C 9.1 % (4.0-6.0); MAGNESIUM 1.6 mg/dL (1.80-2.40); TOTAL PROTEIN, SERUM 6.8 g/dL (6.0-8.3)
[2019-09-03 05:41] LABS: B-TYPE NATRIURETIC PEPTIDE 459 pg/mL (0-100)
[2019-09-03] MEDS: INSULIN HUMULIN R 100 UNIT/ML 3ML SQ SCH ×4 (05:59→20:27)
[2019-09-03 08:00] VITALS: BP 107/65
[2019-09-03] MEDS: POTASSIUM CHLORIDE 20 MEQ ERTAB PO SCH (08:46)
[2019-09-03] MEDS: FAMOTIDINE 20MG TAB 20 MG TAB PO SCH (08:46)
[2019-09-03 10:20] LABS: % IRON SATURATION 16.7 % (30-44)
[2019-09-03 10:29] LABS: THYROID STIMULATING HORMONE 2.37 uIU/mL (0.36-3.74)
[2019-09-03] MEDS: MAGNESIUM 2GM PREMIX 50ML 50 ML IV SCH (10:44)
[2019-09-03] MEDS ORDERED: OCTREOTIDE ACETATE 1,250 MCG in SODIUM CHLORIDE 0.9% 250 ML IV SCH (10:45)
[2019-09-03] MEDS ORDERED: OCTREOTIDE ACETATE 100 MCG/ML AMP IV SCH (10:45)
[2019-09-03] MEDS ORDERED: PANTOPRAZOLE 40 MG/VIAL IVP SCH (10:45)
[2019-09-03 11:05] LABS: CREATININE,URINE RANDOM 184 mg/dL (30-135); SODIUM,URINE RANDOM 74 mmol/l (40-220)
[2019-09-03 11:10] LABS: AMPHET/METH SCREEN,URINE NEGATIVE (NEGATIVE); BARBITURATE SCREEN, URINE NEGATIVE (NEGATIVE); BENZODIAZEPINES SCREEN,URINE NEGATIVE (NEGATIVE); CANNABINOID SCREEN,URINE NEGATIVE (NEGATIVE); COCAINE SCREEN,URINE NEGATIVE (NEGATIVE); OPIATE SCREEN,URINE POSITIVE (NEGATIVE); PHENCYCLIDINE SCREEN,URINE NEGATIVE (NEGATIVE)
[2019-09-03] MEDS: LACTULOSE 20 GM/30 ML UDCUP PO SCH ×2 (11:39→18:31)
[2019-09-03 12:00] VITALS: BP 124/71
[2019-09-03] MEDS ORDERED: COMPOUND IV MISC 1 EACH IVSOLN MISC PRN (12:15)
[2019-09-03] MEDS: PANTOPRAZOLE SODIUM 80 MG in SODIUM CHLORIDE 0.9% 100 ML IV SCH (13:36)
[2019-09-03] MEDS: POTASSIUM CHLORIDE 20 MEQ ERTAB PO PRN (14:55)
[2019-09-03 16:00] VITALS: BP 129/80
[2019-09-03] MEDS: ALBUMIN (HUMAN) 25% 100 ML IV.SOLN. IV SCH ×2 (16:09→23:17)
[2019-09-03 17:09] LABS: CREATININE 1.8 mg/dL (0.5-1.5); MAGNESIUM 1.9 mg/dL (1.80-2.40); POTASSIUM 3.4 mmol/L (3.5-5.1)
[2019-09-03] MEDS: CEFTRIAXONE SODIUM 1 GM IVP SCH (17:09)
[2019-09-03 21:00] VITALS: BP 130/71
[2019-09-03 23:51] VITALS: BP 134/82
[2019-09-04] MEDS: LACTULOSE 20 GM/30 ML UDCUP PO SCH ×3 (02:23→18:46)
[2019-09-04 03:57] VITALS: BP 137/84
[2019-09-04 05:28] LABS: BASOPHILS % (AUTO) 0.4 % (0.0-5.0); EOSINOPHILS % (AUTO) 2.8 % (0.0-8.0); HEMATOCRIT 25.5 % (42-54); LYMPHOCYTES % (AUTO) 21.6 % (21.0-51.0); MEAN CORPUSCULAR HEMOGLOBIN 27.3 pg (27.0-33.0); MEAN CORPUSCULAR VOLUME 88.2 fL (79-99); NEUTROPHILS % (AUTO) 67.2 % (40.0-77.0); PLATELET COUNT (AUTO) 23 K/uL (130-400); RED BLOOD CELL COUNT(AUTO) 2.89 MIL/uL (4.50-6.20); RED CELL DISTRIBUTION WIDTH 19.3 % (11.0-15.5); WHITE BLOOD COUNT (AUTO) 2.5 K/uL (4.8-10.8)
[2019-09-04 05:43] LABS: ALBUMIN 3.3 g/dL (3.5-5.0); BILIRUBIN,TOTAL 2.1 mg/dL (0.2-1.0); CREATININE 1.8 mg/dL (0.5-1.5); MAGNESIUM 1.9 mg/dL (1.80-2.40); POTASSIUM 3.4 mmol/L (3.5-5.1); TOTAL PROTEIN, SERUM 7.3 g/dL (6.0-8.3)
[2019-09-04] MEDS: INSULIN HUMULIN R 100 UNIT/ML 3ML SQ SCH ×4 (05:44→21:00)
[2019-09-04] MEDS: ALBUMIN (HUMAN) 25% 100 ML IV.SOLN. IV SCH (06:43)
[2019-09-04] MEDS: PANTOPRAZOLE SODIUM 80 MG in SODIUM CHLORIDE 0.9% 100 ML IV SCH (06:58)
[2019-09-04 08:00] VITALS: BP 137/83
[2019-09-04] MEDS: POTASSIUM CHLORIDE 20 MEQ ERTAB PO SCH (08:30)
[2019-09-04] MEDS ORDERED: IRON SUCROSE COMPLEX 100 MG in SODIUM CHLORIDE 0.9% 50 ML IV SCH (09:00)
[2019-09-04] MEDS: Vitamin B Complex/Vit C/Folic Acid PO SCH (09:00)
[2019-09-04] MEDS: FAMOTIDINE 20MG TAB 20 MG TAB PO SCH (09:00)
[2019-09-04] MEDS ORDERED: LIDOCAINE HCL 1% 20 ML VIAL ONE (09:02)
[2019-09-04] MEDS ORDERED: PROPOFOL 10 MG/ML 20ML VIAL IV ONE (09:02)
[2019-09-04] MEDS: FUROSEMIDE 10 MG/ML 2ML VIAL IV SCH ×2 (09:15→18:45)
[2019-09-04] MEDS: THIAMINE HCL 100 MG/ML 2ML VIAL IVP SCH (09:33)
[2019-09-04] MEDS ORDERED: FUROSEMIDE 10 MG/ML 2ML VIAL ONE (09:39)
[2019-09-04] MEDS ORDERED: TRAMADOL HCL 50 MG TABLET PO SCH (11:45)
[2019-09-04] MEDS ORDERED: TRAMADOL HCL 50 MG TABLET ONE (11:53)
[2019-09-04 12:00] VITALS: BP 141/80
[2019-09-04 12:32] LABS: ABG BASE EXCESS -1.1 mmol/L (-2.0-3.0); ABG HCO3 20.4 mmol/L (21.0-28.0); ABG OXYGEN SATURATION 97.4 % (95.0-99.0); ABG PCO2 27 mmHg (35-48)
[2019-09-04] MEDS ORDERED: PHARMACY COMMUNICATION MISC PRN (15:15)
[2019-09-04] MEDS ORDERED: LORAZEPAM 2 MG/ML 1 ML VIAL IVP PRN (15:15)
[2019-09-04] MEDS ORDERED: CHLORDIAZEPOXIDE HCL 25 MG CAP PO PRN (15:15)
[2019-09-04 15:20] LABS: HEMATOCRIT 25.9 % (42-54)
[2019-09-04 16:00] VITALS: BP 137/79
[2019-09-04 17:06] LABS: CREATININE,URINE RANDOM 149 mg/dL (30-135); POTASSIUM,URINE RANDOM 36 mmol/L (25-125); SODIUM,URINE RANDOM 70 mmol/l (40-220)
[2019-09-04] MEDS: CEFTRIAXONE SODIUM 1 GM IVP SCH (18:45)
[2019-09-04 20:08] VITALS: BP 144/85
[2019-09-04 23:09] LABS: HEMATOCRIT 28.9 % (42-54)
[2019-09-04 23:48] VITALS: BP 132/74
[2019-09-05] VITALS (22 sets, daily range): BP systolic 93–149; BP diastolic 65–93
[2019-09-05] MEDS: LACTULOSE 20 GM/30 ML UDCUP PO SCH ×3 (03:04→17:40)
[2019-09-05] MEDS: FUROSEMIDE 10 MG/ML 2ML VIAL IV SCH ×3 (03:05→14:48)
[2019-09-05] MEDS: PANTOPRAZOLE SODIUM 80 MG in SODIUM CHLORIDE 0.9% 100 ML IV SCH (05:13)
[2019-09-05] MEDS: INSULIN HUMULIN R 100 UNIT/ML 3ML SQ SCH ×4 (05:16→21:00)
[2019-09-05 05:29] LABS: HEMATOCRIT 24.8 % (42-54); MEAN CORPUSCULAR HEMOGLOBIN 28.9 pg (27.0-33.0); MEAN CORPUSCULAR HGB CONC 32.3 g/dL (32.0-36.0); MEAN CORPUSCULAR VOLUME 89.5 fL (79-99); PLATELET COUNT (AUTO) 39 K/uL (130-400); RED BLOOD CELL COUNT(AUTO) 2.77 MIL/uL (4.50-6.20); RED CELL DISTRIBUTION WIDTH 19.3 % (11.0-15.5); WHITE BLOOD COUNT (AUTO) 2.2 K/uL (4.8-10.8)
[2019-09-05 05:32] LABS: CREATININE 1.8 mg/dL (0.5-1.5); MAGNESIUM 1.7 mg/dL (1.80-2.40)
[2019-09-05 05:33] LABS: POTASSIUM 2.9 mmol/L (3.5-5.1)
[2019-09-05] MEDS: POTASSIUM CHLORIDE 10MEQ/100ML 100 ML IV PRN ×2 (06:25→09:54)
[2019-09-05 07:22] LABS: HEMATOCRIT 25.1 % (42-54)
[2019-09-05] MEDS ORDERED: POTASSIUM CHLORIDE 20 MEQ ERTAB PO SCH (08:15)
--- NOTE | 2019-09-05 08:15 | NUR ---
Paged Hospitalist recreation coordinator to notify of potassium level of 2.9. Potassium protocol already initiated, IV 20 meQ currently infusing.
--- NOTE | 2019-09-05 09:09 | NUR ---
Paged Dr. Hyde regarding EGD delay and if to be performed. Per Dr. Rg, will perform EGD if recommended by Dr. Hyde.Left message with Maritza at Dr. Hyde office.
--- NOTE | 2019-09-05 09:32 | NUR ---
Notified Dr. Hyde of patient pending EGD. Patient breathing improved from yesterday. Per Dr. Hyde. prepare for EGD at 11:00. Called GI lab and notified Nancy who will notify GI team. Called scheduling to reschedule for 11:00 am today.
--- NOTE | 2019-09-05 09:44 | NUR ---
Spoke with Anabel in scheduling, EGD with MAC scheduled for today at 11:00.
[2019-09-05] MEDS: THIAMINE HCL 100 MG/ML 2ML VIAL IVP SCH (09:54)
[2019-09-05] MEDS ORDERED: KETAMINE 50MG/ML SYRINGE 50 MG/ML DISP.SYRIN IV ONE (11:02)
[2019-09-05] MEDS ORDERED: GLYCOPYRROLATE 0.2 MG/ML 5 ML VIAL ONE (11:04)
[2019-09-05] MEDS ORDERED: SUCCINYLCHOLINE CHLORIDE 20 MG/ML 10 ML VIAL ONE (11:04)
--- NOTE | 2019-09-05 12:29 | NUR ---
Scheduled follow up appointment for 09/13/19 at 13:00 Addendum: 09/05/19 at 1229 by BOBBI MCCOY RN RN With Dr. Hyde
[2019-09-05] MEDS: CYANOCOBALAMIN (VITAMIN B-12) 1,000 MCG TABLET PO SCH (12:48)
[2019-09-05] MEDS: Vitamin B Complex/Vit C/Folic Acid PO SCH (12:48)
[2019-09-05] MEDS: FOLIC ACID 1 MG TABLET PO SCH (12:48)
[2019-09-05] MEDS: FAMOTIDINE 20MG TAB 20 MG TAB PO SCH (12:48)
[2019-09-05] MEDS: MAGNESIUM 2GM PREMIX 50ML 50 ML IV SCH (14:16)
--- NOTE | 2019-09-05 15:51 | NUR ---
CM NOTE/INITIAL MEET WITH PATIENT IN ROOM. PER PATIENT, LIVES ALONE, HAS CAREGIVER THAT ASSISTS WITH ADLS DAILY, HAS CANE AND WALKER IN USE, NO HH, AND FEELS SAFE TO RETURN HOME. Addendum: 09/05/19 at 1553 by JOSUÉ ROBERTSON RN CM Amended: Links added.
[2019-09-05] MEDS: CEFTRIAXONE SODIUM 1 GM IVP SCH (17:21)
[2019-09-05 20:38] LABS: MAGNESIUM 1.9 mg/dL (1.80-2.40); POTASSIUM 3.5 mmol/L (3.5-5.1)
[2019-09-05] MEDS: FUROSEMIDE 20 MG TABLET PO SCH (21:05)
[2019-09-05] MEDS ORDERED: ZOLPIDEM TARTRATE 5 MG TAB PO ONE (22:50)
[2019-09-06] MEDS: LACTULOSE 20 GM/30 ML UDCUP PO SCH ×3 (03:38→17:22)
[2019-09-06 04:08] VITALS: BP 130/93
[2019-09-06 05:14] LABS: HEMATOCRIT 25.5 % (42-54); MEAN CORPUSCULAR HEMOGLOBIN 27.9 pg (27.0-33.0); MEAN CORPUSCULAR VOLUME 90.1 fL (79-99); PLATELET COUNT (AUTO) 33 K/uL (130-400); RED BLOOD CELL COUNT(AUTO) 2.83 MIL/uL (4.50-6.20); RED CELL DISTRIBUTION WIDTH 19.3 % (11.0-15.5); WHITE BLOOD COUNT (AUTO) 2.5 K/uL (4.8-10.8)
[2019-09-06 05:38] LABS: ALBUMIN 3.4 g/dL (3.5-5.0); BILIRUBIN,DIRECT 0.4 mg/dL (0.0-0.3); BILIRUBIN,TOTAL 1.5 mg/dL (0.2-1.0); CREATININE 1.7 mg/dL (0.5-1.5); MAGNESIUM 2.2 mg/dL (1.80-2.40); POTASSIUM 3.2 mmol/L (3.5-5.1); TOTAL PROTEIN, SERUM 7.3 g/dL (6.0-8.3)
[2019-09-06] MEDS: INSULIN HUMULIN R 100 UNIT/ML 3ML SQ SCH ×4 (05:38→20:05)
[2019-09-06 05:41] LABS: EOSINOPHILS % (MANUAL) 6 % (1-6); LYMPHOCYTES % (MANUAL) 41 % (22-44); MAN.DIFF COMMENT-IMPRESSION MANUAL DIFFERENTIAL; MONOCYTES % (MANUAL) 7 % (2-9); SEGMENTED NEUTROPHILS % 46 % (40-70)
[2019-09-06] MEDS: ACETAMINOPHEN 325 MG TAB PO PRN (06:45)
[2019-09-06] MEDS: POTASSIUM CHLORIDE 20 MEQ ERTAB PO PRN ×5 (07:18→20:38)
[2019-09-06 07:28] VITALS: BP 126/96
[2019-09-06 08:44] LABS: HEMATOCRIT 25.4 % (42-54)
[2019-09-06] MEDS ORDERED: PANTOPRAZOLE SODIUM 40 MG TABLET.DR PO SCH (09:00)
[2019-09-06 10:37] VITALS: BP 135/80
[2019-09-06] MEDS: CEFTRIAXONE SODIUM 1 GM IVP SCH (10:40)
[2019-09-06] MEDS: Vitamin B Complex/Vit C/Folic Acid PO SCH (10:41)
[2019-09-06] MEDS: FOLIC ACID 1 MG TABLET PO SCH (10:41)
[2019-09-06] MEDS: FAMOTIDINE 20MG TAB 20 MG TAB PO SCH (10:41)
[2019-09-06] MEDS: THIAMINE HCL 100 MG/ML 2ML VIAL IVP SCH (10:41)
[2019-09-06] MEDS: CYANOCOBALAMIN (VITAMIN B-12) 1,000 MCG TABLET PO SCH (10:42)
[2019-09-06] MEDS: FUROSEMIDE 20 MG TABLET PO SCH ×2 (10:42→20:28)
[2019-09-06 15:31] VITALS: BP 150/74
[2019-09-06 19:00] VITALS: BP 131/83
[2019-09-06 23:00] VITALS: BP 134/80
[2019-09-07] MEDS: POTASSIUM CHLORIDE 20 MEQ ERTAB PO PRN ×2 (00:08→06:58)
[2019-09-07] MEDS: LACTULOSE 20 GM/30 ML UDCUP PO SCH (02:34)
[2019-09-07 03:00] VITALS: BP 145/89
[2019-09-07] MEDS: ACETAMINOPHEN 325 MG TAB PO PRN (03:50)
[2019-09-07 06:22] LABS: BASOPHILS % (AUTO) 0.9 % (0.0-5.0); HEMATOCRIT 25.9 % (42-54); LYMPHOCYTES % (AUTO) 25.7 % (21.0-51.0); MEAN CORPUSCULAR HEMOGLOBIN 28.2 pg (27.0-33.0); MEAN CORPUSCULAR HGB CONC 30.9 g/dL (32.0-36.0); MEAN CORPUSCULAR VOLUME 91.2 fL (79-99); MONOCYTES % (AUTO) 9.1 % (3.0-13.0); NEUTROPHILS % (AUTO) 60.9 % (40.0-77.0); PLATELET COUNT (AUTO) 32 K/uL (130-400); RED BLOOD CELL COUNT(AUTO) 2.84 MIL/uL (4.50-6.20); RED CELL DISTRIBUTION WIDTH 19.9 % (11.0-15.5); WHITE BLOOD COUNT (AUTO) 2.3 K/uL (4.8-10.8)
[2019-09-07] MEDS: INSULIN HUMULIN R 100 UNIT/ML 3ML SQ SCH (06:33)
[2019-09-07 06:41] LABS: CREATININE 1.4 mg/dL (0.5-1.5); POTASSIUM 3.4 mmol/L (3.5-5.1)
[2019-09-07 07:33] LABS: EOSINOPHILS % (MANUAL) 3 % (1-6); LYMPHOCYTES % (MANUAL) 19 % (22-44); MONOCYTES % (MANUAL) 5 % (2-9); SEGMENTED NEUTROPHILS % 73 % (40-70)
[2019-09-07 07:34] LABS: PLATELET MORPHOLOGY COMMENT MARKED DECREASE
[2019-09-07 07:35] LABS: MAN.DIFF COMMENT-IMPRESSION MANUAL DIFFERENTIAL
--- NOTE | 2019-09-07 07:56 | NUR ---
patient sign AMA form. discussed to him about the implications about leaving against medical advice. patient understood the implications and he verbalized that he still want to leave. notified charge nurse about the AMA
--- NOTE | 2019-09-07 08:10 | NUR ---
dr. borja notified that the patient left AMA.
== END 2019-09-07 09:00 | disposition left against medical advice (07) | DRG 377 ==
LOC: EDH 16:11 → EDHIP 19:15 → 3DH 21:01
PROVIDERS: ADMIT Internal Medicine; ATTEND Internal Medicine
PROC: 0DB68ZX Excision of Stomach, Via Natural or Artificial Opening Endoscopic, Diagnostic (ICD-10-PCS; 2019-09-05)
PROC: 30233R1 Transfusion of Nonautologous Platelets into Peripheral Vein, Percutaneous Approach (ICD-10-PCS; principal; 2019-09-07)
DX: K29.71 Gastritis, unspecified, with bleeding (principal); I50.33 Acute on chronic diastolic (congestive) heart failure; J96.01 Acute respiratory failure with hypoxia; I85.11 Secondary esophageal varices with bleeding; N17.9 Acute kidney failure, unspecified; D61.818 Other pancytopenia; D62 Acute posthemorrhagic anemia; I82.890 Acute embolism and thrombosis of other specified veins; Z68.42 Body mass index [BMI] 45.0-49.9, adult; I13.0 Hypertensive heart and chronic kidney disease with heart failure and stage 1 through stage 4 chronic kidney disease, or unspecified chronic kidney disease; K70.31 Alcoholic cirrhosis of liver with ascites; E78.5 Hyperlipidemia, unspecified; G47.33 Obstructive sleep apnea (adult) (pediatric); F32.9 Major depressive disorder, single episode, unspecified; E66.01 Morbid (severe) obesity due to excess calories; K31.89 Other diseases of stomach and duodenum; D73.5 Infarction of spleen; E11.22 Type 2 diabetes mellitus with diabetic chronic kidney disease; E87.6 Hypokalemia; F10.10 Alcohol abuse, uncomplicated; I44.0 Atrioventricular block, first degree; N18.3 Chronic kidney disease, stage 3 (moderate); K72.90 Hepatic failure, unspecified without coma; Z93.0 Tracheostomy status; Z91.19 Patient's noncompliance with other medical treatment and regimen; Z82.3 Family history of stroke; Z81.8 Family history of other mental and behavioral disorders; Z82.0 Family history of epilepsy and other diseases of the nervous system; Z82.49 Family history of ischemic heart disease and other diseases of the circulatory system; Z83.3 Family history of diabetes mellitus; Z82.5 Family history of asthma and other chronic lower respiratory diseases
CPT/HCPCS: 36415; 36600; 43239; 71045; 76700; 76770; 80048; 80053; 80076; 80305; 81003; 82140; 82270; 82550; 82570; 82803; 82948; 83036; 83540; 83550; 83735; 83880; 84132; 84133; 84300; 84443; 84484; 84550; 85014; 85018; 85025; 85027; 85610; 85730; 86850; 86900; 86901; 88305; 88342; 93005; 93306; 93356; A4606; C9113; G0378; J0330; J0696; J1756; J1815; J1940; J2354; J2704; J3411; J3475; J3490; J7030; J7050; P9034; P9046

== ENCOUNTER 2019-10-26 08:19 | Inpatient (IN) | payer OTHER, MEDICARE ==
[~2019-10-26] VITALS: Ht 182.9 cm; Wt 154.3 kg
[~2019-10-26 08:19] MED LIST changes: -CARV12.511 PO; -FLUT16H NASAL; -HYDR12.54 PO; -LOVA10TA2 PO; -VILA40TA PO
[2019-10-26 09:02] LABS: CREATININE 4.1 mg/dL (0.5-1.5)
[2019-10-26 09:09] LABS: ALBUMIN 3.4 g/dL (3.5-5.0); BILIRUBIN,TOTAL 1.9 mg/dL (0.2-1.0); TOTAL PROTEIN, SERUM 7.7 g/dL (6.0-8.3)
[2019-10-26 09:10] LABS: B-TYPE NATRIURETIC PEPTIDE 560 pg/mL (0-100)
[2019-10-26 09:13] LABS: BASOPHILS % (AUTO) 0.8 % (0.0-5.0); HEMATOCRIT 22.9 % (42-54); LYMPHOCYTES % (AUTO) 16.9 % (21.0-51.0); MEAN CORPUSCULAR HEMOGLOBIN 30.5 pg (27.0-33.0); MEAN CORPUSCULAR HGB CONC 33.2 g/dL (32.0-36.0); MONOCYTES % (AUTO) 7.6 % (3.0-13.0); NEUTROPHILS % (AUTO) 70.7 % (40.0-77.0); PLATELET COUNT (AUTO) 40 K/uL (130-400); RED BLOOD CELL COUNT(AUTO) 2.49 MIL/uL (4.50-6.20); RED CELL DISTRIBUTION WIDTH 18.6 % (11.0-15.5); WHITE BLOOD COUNT (AUTO) 2.5 K/uL (4.8-10.8)
[2019-10-26 09:43] LABS: BASOPHILS % (MANUAL) 3 % (0-2); EOSINOPHILS % (MANUAL) 2 % (1-6); LYMPHOCYTES % (MANUAL) 11 % (22-44); MAN.DIFF COMMENT-IMPRESSION MANUAL DIFFERENTIAL; MONOCYTES % (MANUAL) 4 % (2-9); SEGMENTED NEUTROPHILS % 80 % (40-70)
[2019-10-26 09:59] LABS: INR 1.33 (0.85-1.15); PARTIAL THROMBOPLASTIN TIME 33.4 SEC (26.3-35.5); PROTHROMBIN TIME 14.2 SEC (9.6-11.6)
[2019-10-26] MEDS ORDERED: FUROSEMIDE 10 MG/ML 4ML VIAL ONE (10:08)
[2019-10-26] MEDS ORDERED: POTASSIUM CHLORIDE 20 MEQ ERTAB PO ONE (10:09)
[2019-10-26] MEDS ORDERED: ACETAMINOPHEN 325 MG TAB PO PRN ×2 (11:45)
[2019-10-26] MEDS ORDERED: NITROGLYCERIN 0.4 MG SL TAB SL PRN (11:45)
[2019-10-26] MEDS ORDERED: LACTULOSE 20 GM/30 ML UDCUP PO PRN (11:45)
[2019-10-26] MEDS ORDERED: DiphenhydrAMINE HCL 50 MG/ML VIAL IV PRN (11:45)
[2019-10-26] MEDS ORDERED: DIPHENHYDRAMINE HCL 25 MG CAPSULE PO PRN (11:45)
[2019-10-26] MEDS ORDERED: GUAIFENESIN-DM 200/20 MG 10 ML PO PRN (11:45)
[2019-10-26] MEDS ORDERED: ONDANSETRON HCL 4 MG/2 ML VIAL IV PRN (11:45)
[2019-10-26] MEDS ORDERED: MAG HYDROX/AL HYDROX/SIMETH ES 30 ML SUSP UDCUP PO PRN (11:45)
[2019-10-26] MEDS ORDERED: ALBUMIN (HUMAN) 25% 50 ML IV SCH (11:45)
[2019-10-26] MEDS ORDERED: MORPHINE SULFATE 2 MG/ML 1ML SYG IV PRN (11:45)
[2019-10-26] MEDS: LACTULOSE 20 GM/30 ML UDCUP PO SCH ×2 (12:00→18:00)
[2019-10-26] MEDS ORDERED: IPRATROPIUM 0.5 MG/2.5 ML INH IH ONE ×2 (13:34→21:44)
[2019-10-26] MEDS ORDERED: ALBUMIN (HUMAN) 25% 50 ML IV ONE (13:39)
[2019-10-26] MEDS ORDERED: LACTULOSE 20 GM/30 ML UDCUP ONE (13:39)
[2019-10-26] MEDS: IPRATROPIUM 0.5 MG/2.5 ML INH IH SCH ×3 (14:00→21:46)
[2019-10-26 16:13] LABS: APPEARANCE,URINE Clear (CLEAR); BILIRUBIN,URINE Negative (NEGATIVE); COLOR,URINE Yellow (YELLOW); GLUCOSE, URINE (UA) Negative (NEGATIVE); KETONES,URINE Negative (NEGATIVE); LEUKOCYTE ESTERASE ,URINE Negative (NEGATIVE); NITRATE,URINE Negative (NEGATIVE); OCCULT BLOOD,URINE Negative (NEGATIVE); PH,URINE 7.5 (5.0-8.0); PROTEIN,URINE POS 1+ mg/dL (NEGATIVE)
[2019-10-26 16:27] LABS: BACTERIA,URINE None Seen /HPF (None Seen); MUCUS,URINE Few LPF (None Seen); RBC,URINE 0-1 /HPF (0-1); SQUAMOUS EPITHELIAL CELL,UR 0-2 /HPF (0-2); WBC,URINE 0-1 /HPF (0-1)
[2019-10-26 18:00] VITALS: BP 142/63
[2019-10-26] MEDS ORDERED: CYAN200018 PO (18:38)
[2019-10-26] MEDS ORDERED: FURO40TA5 PO ×2 (18:38)
[2019-10-26] MEDS ORDERED: HYDR12.54 PO (18:38)
[2019-10-26] MEDS ORDERED: METF-444 PO (18:38)
[2019-10-26] MEDS ORDERED: APIX5TAB PO (18:38)
[2019-10-26] MEDS ORDERED: INSU300I SQ (18:38)
[2019-10-26] MEDS ORDERED: CARV12.511 PO (18:38)
[2019-10-26] MEDS ORDERED: ATOR10 PO (18:38)
[2019-10-26] MEDS ORDERED: POTA-9 PO (18:38)
[2019-10-26 20:03] VITALS: BP 152/96
[2019-10-26] MEDS: FAMOTIDINE 20MG TAB 20 MG TAB PO SCH (21:19)
[2019-10-26] MEDS: FUROSEMIDE 10 MG/ML 4ML VIAL IVP SCH (21:19)
[2019-10-26 23:00] LABS: MAGNESIUM 2.6 mg/dL (1.80-2.40)
[2019-10-26 23:01] LABS: POTASSIUM 2.9 mmol/L (3.5-5.1)
[2019-10-26 23:33] VITALS: BP 113/72
[2019-10-27] MEDS: FUROSEMIDE 10 MG/ML 4ML VIAL IVP SCH ×3 (00:19→20:24)
[2019-10-27] MEDS: POTASSIUM CHLORIDE 10% ELIXIR 20 MEQ/15 ML UDCUP PO SCH ×2 (00:19→23:30)
[2019-10-27] MEDS: LACTULOSE 20 GM/30 ML UDCUP PO SCH ×5 (00:20→23:21)
[2019-10-27] MEDS ORDERED: IPRATROPIUM 0.5 MG/2.5 ML INH IH ONE ×2 (01:04→06:17)
[2019-10-27] MEDS: IPRATROPIUM 0.5 MG/2.5 ML INH IH SCH ×6 (01:06→21:30)
--- NOTE | 2019-10-27 01:52 | NUR ---
@2229 FLAKITA Flores notifed that patient has Lasix 40mg IV due tonight and todays Klevel 3.0 ,received order to recheck K and Mg level and give 30 meq Potassium PO X1 if level is low and give.Lasix as ordered.K level is 2.9 .Lasix given as ordered.
[2019-10-27 03:19] VITALS: BP 118/56
[2019-10-27 04:10] LABS: BASOPHILS % (AUTO) 0.9 % (0.0-5.0); EOSINOPHILS % (AUTO) 5.1 % (0.0-8.0); HEMATOCRIT 21.7 % (42-54); LYMPHOCYTES % (AUTO) 22.9 % (21.0-51.0); MEAN CORPUSCULAR HEMOGLOBIN 30.5 pg (27.0-33.0); MEAN CORPUSCULAR HGB CONC 32.7 g/dL (32.0-36.0); MEAN CORPUSCULAR VOLUME 93.1 fL (79-99); MONOCYTES % (AUTO) 8.9 % (3.0-13.0); NEUTROPHILS % (AUTO) 61.7 % (40.0-77.0); PLATELET COUNT (AUTO) 30 K/uL (130-400); RED BLOOD CELL COUNT(AUTO) 2.33 MIL/uL (4.50-6.20); RED CELL DISTRIBUTION WIDTH 18.6 % (11.0-15.5); WHITE BLOOD COUNT (AUTO) 2.1 K/uL (4.8-10.8)
[2019-10-27 04:38] LABS: ALBUMIN 3.3 g/dL (3.5-5.0); BILIRUBIN,TOTAL 2.5 mg/dL (0.2-1.0); CREATININE 2.9 mg/dL (0.5-1.5); MAGNESIUM 2.6 mg/dL (1.80-2.40); PHOSPHORUS 4.4 mg/dL (2.5-4.9); POTASSIUM 3.2 mmol/L (3.5-5.1); THYROID STIMULATING HORMONE 3.08 uIU/mL (0.36-3.74); TOTAL PROTEIN, SERUM 7.3 g/dL (6.0-8.3); URIC ACID 15.8 mg/dL (2.6-7.2)
[2019-10-27 05:22] LABS: % IRON SATURATION 45.1 % (30-44)
[2019-10-27] MEDS: Vitamin B Complex/Vit C/Folic Acid PO SCH (07:51)
[2019-10-27] MEDS: FAMOTIDINE 20MG TAB 20 MG TAB PO SCH ×2 (07:51→20:24)
[2019-10-27 08:00] VITALS: BP 124/73
[2019-10-27 11:37] VITALS: BP 140/78
[2019-10-27] MEDS: ALBUMIN (HUMAN) 25% 50 ML IV SCH ×2 (13:09→20:23)
[2019-10-27 16:00] VITALS: BP 124/73
--- NOTE | 2019-10-27 16:30 | NUR ---
cm note met with patient and states resides at home alone, has provider 4hrs daily, ambulaates with cane and walker, and has a w/c, states dc plan is back to home. at vt. no dc needs. provided brother's phone # declan Gross [phone]. and updated demographic sheet per his request. Addendum: 10/27/19 at 1635 by DHEERAJ FREITAS CM Amended: Links added.
[2019-10-27] MEDS ORDERED: LACTULOSE 20 GM/30 ML UDCUP ONE (17:33)
[2019-10-27 20:14] VITALS: BP 131/74
--- NOTE | 2019-10-27 21:50 | NUR ---
Patient was complaining on the Tx, stated he wants to skip the next one which is at 0200 stated that he thaught they were going to get discontinues which they did not, he just don't want to take them anymore will skip the o200 one will notify the nurse on it. Addendum: 10/27/19 at 2153 by LILIANE ARRINGTON RT Amended: Links added.
[2019-10-27] MEDS ORDERED: TEMAZEPAM 7.5 MG CAPSULE PO ONE ×2 (23:00→23:19)
[2019-10-27 23:59] VITALS: BP 133/72
[2019-10-28] MEDS: IPRATROPIUM 0.5 MG/2.5 ML INH IH SCH ×6 (02:00→21:24)
[2019-10-28 04:03] VITALS: BP 126/76
[2019-10-28 04:40] LABS: BASOPHILS % (AUTO) 0.8 % (0.0-5.0); EOSINOPHILS % (AUTO) 5.3 % (0.0-8.0); LYMPHOCYTES % (AUTO) 24.3 % (21.0-51.0); MEAN CORPUSCULAR HEMOGLOBIN 30.6 pg (27.0-33.0); MEAN CORPUSCULAR HGB CONC 32.7 g/dL (32.0-36.0); MEAN CORPUSCULAR VOLUME 93.6 fL (79-99); MONOCYTES % (AUTO) 7.8 % (3.0-13.0); NEUTROPHILS % (AUTO) 61.4 % (40.0-77.0); PLATELET COUNT (AUTO) 34 K/uL (130-400); RED BLOOD CELL COUNT(AUTO) 2.35 MIL/uL (4.50-6.20); RED CELL DISTRIBUTION WIDTH 18.6 % (11.0-15.5); WHITE BLOOD COUNT (AUTO) 2.4 K/uL (4.8-10.8)
[2019-10-28] MEDS: ALBUMIN (HUMAN) 25% 50 ML IV SCH (04:52)
[2019-10-28 04:55] LABS: ALBUMIN 3.7 g/dL (3.5-5.0); BILIRUBIN,TOTAL 2.2 mg/dL (0.2-1.0); CREATININE 2.7 mg/dL (0.5-1.5)
[2019-10-28] MEDS: LACTULOSE 20 GM/30 ML UDCUP PO SCH ×4 (05:04→23:55)
[2019-10-28 05:12] LABS: POTASSIUM 2.9 mmol/L (3.5-5.1)
[2019-10-28] MEDS ORDERED: POTASSIUM CHLORIDE 20 MEQ ERTAB PO SCH (05:15)
[2019-10-28] MEDS ORDERED: POTASSIUM CHLORIDE 20 MEQ ERTAB PO ONE (05:19)
[2019-10-28] MEDS ORDERED: IPRATROPIUM 0.5 MG/2.5 ML INH IH ONE (06:05)
[2019-10-28 07:00] VITALS: BP 125/85
[2019-10-28] MEDS: FAMOTIDINE 20MG TAB 20 MG TAB PO SCH ×2 (07:59→20:15)
[2019-10-28] MEDS: Vitamin B Complex/Vit C/Folic Acid PO SCH (07:59)
[2019-10-28] MEDS: FUROSEMIDE 10 MG/ML 4ML VIAL IVP SCH ×2 (07:59→20:20)
[2019-10-28 11:00] VITALS: BP 106/50
[2019-10-28] MEDS: ACETAMINOPHEN-CODEINE 300/30MG TAB PO PRN (15:48)
--- NOTE | 2019-10-28 15:50 | NUR ---
DR. RAZA IN ROOM SPEAKING WITH PT. DR. RAZA MADE AWARE BY THIS NURSE OF PT. WITH EPISODE OF EPISTAXIS THIS MORNING, VERBALIZED UNDERSTANDING.
[2019-10-28 16:00] VITALS: BP 127/67
[2019-10-28 19:39] VITALS: BP 124/68
[2019-10-28 23:36] VITALS: BP 114/73
[2019-10-29] MEDS: IPRATROPIUM 0.5 MG/2.5 ML INH IH SCH ×5 (01:37→22:00)
[2019-10-29 03:42] VITALS: BP 128/74
[2019-10-29 05:18] LABS: BASOPHILS % (AUTO) 0.8 % (0.0-5.0); EOSINOPHILS % (AUTO) 6.5 % (0.0-8.0); HEMATOCRIT 21.2 % (42-54); LYMPHOCYTES % (AUTO) 25.2 % (21.0-51.0); MEAN CORPUSCULAR HEMOGLOBIN 30.7 pg (27.0-33.0); MEAN CORPUSCULAR HGB CONC 32.5 g/dL (32.0-36.0); MEAN CORPUSCULAR VOLUME 94.2 fL (79-99); MONOCYTES % (AUTO) 8.1 % (3.0-13.0); PLATELET COUNT (AUTO) 28 K/uL (130-400); RED BLOOD CELL COUNT(AUTO) 2.25 MIL/uL (4.50-6.20); RED CELL DISTRIBUTION WIDTH 18.5 % (11.0-15.5); WHITE BLOOD COUNT (AUTO) 2.5 K/uL (4.8-10.8)
[2019-10-29 05:39] LABS: ALBUMIN 3.7 g/dL (3.5-5.0); BILIRUBIN,TOTAL 2.5 mg/dL (0.2-1.0); CREATININE 2.7 mg/dL (0.5-1.5); POTASSIUM 3.2 mmol/L (3.5-5.1); TOTAL PROTEIN, SERUM 7.7 g/dL (6.0-8.3)
[2019-10-29] MEDS: LACTULOSE 20 GM/30 ML UDCUP PO SCH ×3 (06:18→18:43)
[2019-10-29] MEDS: ACETAMINOPHEN-CODEINE 300/30MG TAB PO PRN (06:50)
[2019-10-29 07:00] VITALS: BP 128/84
[2019-10-29] MEDS ORDERED: FAMOTIDINE 20MG TAB 20 MG TAB ONE (09:28)
[2019-10-29] MEDS ORDERED: Vitamin B Complex/Vit C/Folic Acid ONE (09:29)
[2019-10-29] MEDS ORDERED: FUROSEMIDE 10 MG/ML 4ML VIAL ONE (09:31)
[2019-10-29] MEDS: FUROSEMIDE 10 MG/ML 4ML VIAL IVP SCH ×2 (09:35→21:08)
[2019-10-29] MEDS: FAMOTIDINE 20MG TAB 20 MG TAB PO SCH ×2 (09:35→21:07)
[2019-10-29] MEDS: Vitamin B Complex/Vit C/Folic Acid PO SCH (09:35)
[2019-10-29 11:04] VITALS: BP 121/68
[2019-10-29] MEDS ORDERED: SODIUM CHLORIDE 0.9% 250 ML IV ONE (12:12)
--- NOTE | 2019-10-29 15:39 | NUR ---
NUTRITION EDUCATION RD Provided Cirrhosis/Renal/Heart Failure Nutrition education. RD reviewed reference materials with Pt. RD answered all of Pt questions. Pt verbalized understanding. Addendum: 10/29/19 at [address] RD Amended: Links added.
--- NOTE | 2019-10-29 15:49 | NUR ---
RD NOTIFICATION Pt admitted with GBW, SOB. Hx CHF, CKD, Cirrhosis. Pt tolerating Renal Non-Dialysis diet order with complaint of GI distress. Good PO intake at 100%.Pt with BLE 3+ Pitting edema, Lasix in place. Obesity Class III (BMI 46.5). Recommend 1200-1500mL Fluid Restriction RD provided nutrition education RD to continue to monitor. Please notify as additional nutrition concerns arise. thank you. Addendum: 10/29/19 at [address] RD Amended: Links added.
[2019-10-29 15:52] VITALS: BP 141/93
[2019-10-29] MEDS ORDERED: POTASSIUM CHLORIDE 20 MEQ ERTAB PO SCH (17:15)
[2019-10-29 19:36] VITALS: BP 131/78
[2019-10-29 23:57] VITALS: BP 117/67
[2019-10-30] MEDS: LACTULOSE 20 GM/30 ML UDCUP PO SCH ×3 (00:43→12:36)
[2019-10-30] MEDS: IPRATROPIUM 0.5 MG/2.5 ML INH IH SCH ×4 (02:00→13:24)
[2019-10-30 03:57] VITALS: BP 112/64
[2019-10-30 03:58] LABS: BASOPHILS % (AUTO) 0.8 % (0.0-5.0); HEMATOCRIT 22.2 % (42-54); LYMPHOCYTES % (AUTO) 21.3 % (21.0-51.0); MEAN CORPUSCULAR HEMOGLOBIN 30.3 pg (27.0-33.0); MEAN CORPUSCULAR HGB CONC 32.4 g/dL (32.0-36.0); MEAN CORPUSCULAR VOLUME 93.3 fL (79-99); MONOCYTES % (AUTO) 9.6 % (3.0-13.0); NEUTROPHILS % (AUTO) 61.9 % (40.0-77.0); PLATELET COUNT (AUTO) 33 K/uL (130-400); RED BLOOD CELL COUNT(AUTO) 2.38 MIL/uL (4.50-6.20); RED CELL DISTRIBUTION WIDTH 19.1 % (11.0-15.5); WHITE BLOOD COUNT (AUTO) 2.5 K/uL (4.8-10.8)
[2019-10-30 04:23] LABS: EOSINOPHILS % (MANUAL) 5 % (1-6); LYMPHOCYTES % (MANUAL) 23 % (22-44); MAN.DIFF COMMENT-IMPRESSION MANUAL DIFFERENTIAL; MONOCYTES % (MANUAL) 7 % (2-9); SEGMENTED NEUTROPHILS % 65 % (40-70)
[2019-10-30 04:24] LABS: ALBUMIN 3.6 g/dL (3.5-5.0); BILIRUBIN,TOTAL 2.4 mg/dL (0.2-1.0); CREATININE 2.4 mg/dL (0.5-1.5); MAGNESIUM 2.5 mg/dL (1.80-2.40); PHOSPHORUS 4.2 mg/dL (2.5-4.9); POTASSIUM 3.4 mmol/L (3.5-5.1); TOTAL PROTEIN, SERUM 7.6 g/dL (6.0-8.3)
[2019-10-30 07:57] VITALS: BP 120/65
[2019-10-30] MEDS: Vitamin B Complex/Vit C/Folic Acid PO SCH (08:29)
[2019-10-30] MEDS: FAMOTIDINE 20MG TAB 20 MG TAB PO SCH (08:29)
[2019-10-30] MEDS: FUROSEMIDE 10 MG/ML 4ML VIAL IVP SCH (08:29)
[2019-10-30] MEDS ORDERED: EPOETIN ALFA 10,000 UNIT/ML VIAL SQ SCH (11:00)
[2019-10-30] MEDS ORDERED: POTASSIUM CHLORIDE 20 MEQ ERTAB PO SCH (11:00)
[2019-10-30] MEDS ORDERED: IRON SUCROSE COMPLEX 300 MG in SODIUM CHLORIDE 0.9% 50 ML IV SCH (11:00)
[2019-10-30] MEDS ORDERED: COMPOUND IV MISC 1 EACH IVSOLN MISC PRN (11:15)
[2019-10-30 11:50] VITALS: BP 118/73
[2019-10-30] MEDS ORDERED: FERR324T4 PO (11:58)
--- NOTE | 2019-10-30 15:24 | NUR ---
[id number] patient signed IM Letter, I faxed IM Letter to [phone] and placed in chart under consent tab.
== END 2019-10-30 16:00 | disposition home or self-care (01) | DRG 291 ==
LOC: EDH 08:19 → EDHIP 11:44 → 4CH 17:58
PROVIDERS: ADMIT Family Medicine; ATTEND Family Medicine
PROC: 30233N1 Transfusion of Nonautologous Red Blood Cells into Peripheral Vein, Percutaneous Approach (ICD-10-PCS; principal; 2019-10-29)
DX: I13.0 Hypertensive heart and chronic kidney disease with heart failure and stage 1 through stage 4 chronic kidney disease, or unspecified chronic kidney disease (principal); I50.31 Acute diastolic (congestive) heart failure; N17.9 Acute kidney failure, unspecified; Z68.42 Body mass index [BMI] 45.0-49.9, adult; K76.6 Portal hypertension; N18.4 Chronic kidney disease, stage 4 (severe); K72.90 Hepatic failure, unspecified without coma; G30.9 Alzheimer's disease, unspecified; F32.9 Major depressive disorder, single episode, unspecified; F02.80 Dementia in other diseases classified elsewhere, unspecified severity, without behavioral disturbance, psychotic disturbance, mood disturbance, and anxiety; E11.22 Type 2 diabetes mellitus with diabetic chronic kidney disease; K70.31 Alcoholic cirrhosis of liver with ascites; F10.20 Alcohol dependence, uncomplicated; D72.819 Decreased white blood cell count, unspecified; D69.59 Other secondary thrombocytopenia; D64.9 Anemia, unspecified; E66.01 Morbid (severe) obesity due to excess calories; E78.5 Hyperlipidemia, unspecified; E87.6 Hypokalemia; G47.00 Insomnia, unspecified; G47.30 Sleep apnea, unspecified; K59.00 Constipation, unspecified; Z82.0 Family history of epilepsy and other diseases of the nervous system; Z82.3 Family history of stroke; Z82.49 Family history of ischemic heart disease and other diseases of the circulatory system; Z82.5 Family history of asthma and other chronic lower respiratory diseases; Z83.3 Family history of diabetes mellitus; Z86.718 Personal history of other venous thrombosis and embolism; Z90.49 Acquired absence of other specified parts of digestive tract; Z91.14 Patient's other noncompliance with medication regimen; G47.33 Obstructive sleep apnea (adult) (pediatric); F19.10 Other psychoactive substance abuse, uncomplicated
CPT/HCPCS: 36415; 36430; 71045; 76700; 80053; 81001; 82140; 82270; 82728; 82948; 83540; 83550; 83735; 83880; 84100; 84132; 84145; 84443; 84484; 84550; 85025; 85610; 85730; 86850; 86900; 86901; 86922; 93005; 94640; 94664; 94760; A4606; G0378; J0885; J1756; J1940; J7050; P9016; P9047